=== PATIENT | female | born 1990 | race African-American/Black ===

== ENCOUNTER 2024-02-02 02:17 | Emergency (ER) | payer OTHER ==
[~2024-02-02] VITALS: Ht 157.5 cm; Wt 61.2 kg
[2024-02-02 02:59] LABS: *BILIRUBIN,URIN 1+ (NEGATIVE); *BLOOD, URINE 2+ (NEGATIVE); *CLARITY,URINE CLEAR (CLEAR); *COLOR,URINE YELLOW (YELLOW); *KETONES,URINE TRACE (NEGATIVE); *PROTEIN,URINE 1+ (NEGATIVE); *UROBILINOGEN,URINE 0.2 E.U./dl (NORMAL); LEUKOCYTE ESTERASE ,URINE NEGATIVE (NEGATIVE); NITRITE, URINE NEGATIVE (NEGATIVE); UGLUCOSE NEGATIVE (NEGATIVE)
[2024-02-02 03:01] LABS: *URINE HCG, QUAL NEGATIVE (NEGATIVE); BACTERIA,URINE FEW /HPF (NONE SEEN); SQUAMOUS EPITHELIAL CELL,UR FEW /HPF (NONE SEEN); WBC,URINE 0-3 /HPF (0-3)
[2024-02-02] MEDS: KETOROLAC TROMETHAMINE 30 MG INJ IM ONE (03:25)
[2024-02-02] MEDS: ONDANSETRON ODT 4 MG TAB.RAPDIS SL ONE (03:45)
[2024-02-02 03:58] LABS: BASOPHILS % (AUTO) 0.4 % (0.0-2.0); EOSINOPHILS % (AUTO) 0.2 % (0.0-7.0); HEMATOCRIT 36.1 % (31.2-41.9); HEMOGLOBIN 12.4 g/dL (10.9-14.3); LYMPHOCYTES # (AUTO) 0.9 K/uL (0.8-4.8); LYMPHOCYTES % (AUTO) 9.8 % (20.5-51.5); MEAN CORPUSCULAR HGB CONC 34 g/dL (32.3-35.6); MEAN CORPUSCULAR VOLUME 84.4 fL (75.5-95.3); MONOCYTES # (AUTO) 0.6 K/uL (0.1-1.30); NEUTROPHILS # (AUTO) 7.8 K/uL (1.8-8.9); NEUTROPHILS % (AUTO) 83.6 % (38.5-71.5); PLATELET COUNT (AUTO) 252 K/uL (179-408); RED BLOOD CELL COUNT(AUTO) 4.28 MIL/uL (3.63-4.92); WHITE BLOOD COUNT (AUTO) 9.3 K/uL (3.8-11.8)
[2024-02-02 04:15] LABS: ALBUMIN 3.9 g/dL (3.4-5.0); CALCIUM 9.2 mg/dL (8.5-10.1); CREATININE 1.6 mg/dL (0.6-1.3); POTASSIUM 3.9 mmol/L (3.5-5.1); TOTAL PROTEIN, SERUM 8.2 g/dL (6.4-8.2)
[2024-02-02] MEDS ORDERED: HYDR-3980 PO (08:52)
[2024-02-02] MEDS ORDERED: TAMS-3 PO (08:52)
[2024-02-02] MEDS ORDERED: TAMSULOSIN HCL 0.4 MG CAP.SR.24H ONE (09:01)
[2024-02-02] MEDS ORDERED: HYDROCODONE/APAP 5-325MG TABLET ONE (09:02)
[2024-02-02] MEDS: TAMSULOSIN HCL 0.4 MG CAP.SR.24H PO ONE (09:08)
[2024-02-02] MEDS: HYDROCODONE/APAP 5-325MG TABLET PO ONE (09:09)
[2024-02-02 09:12] VITALS: BP 131/69; TEMP 98; O2SAT 97
== END 2024-02-02 09:13 | disposition home or self-care (01) ==
LOC: ER 02:23
DX: R10.9 Unspecified abdominal pain (principal); R10.2 Pelvic and perineal pain; R11.2 Nausea with vomiting, unspecified; R78.89 Finding of other specified substances, not normally found in blood; Z79.899 Other long term (current) drug therapy
CPT/HCPCS: 99285; 74176; 80053; 81001; 84703; 85025; 36415; 96372; J1885; A4606; A4663; Q0162